=== PATIENT | male | born 1985 | race Caucasian/White ===

== ENCOUNTER 2021-02-26 18:45 | Emergency (ER) | payer BC ==
[2021-02-26] MEDS ORDERED: Lidocaine 1% 10 ML MDV INJECT ONE (20:07)
[2021-02-26] MEDS ORDERED: Diphtheria,Pertussis(Acell),Tetanus Vaccine 0.5 ML Syringe IM ONE (20:23)
--- NOTE | 2021-02-26 20:30 | EDM.PDOC ---
ED HPI GENERAL MEDICAL PROBLEM - General Chief Complaint: Laceration Stated Complaint: CUT ON LEFT THUMB Time Seen by Provider: 02/26/21 20:09 Source of Information: Reports: Patient, RN Notes Reviewed - History of Present Illness INITIAL COMMENTS - FREE TEXT/NARRATIVE: 35 yr old male fell unto the end of a bolt with resultant lac L hand base of L thumb. Was wearing a glove so had some protection from that. Last tetanus a long time ago. - Related Data Allergies Allergy/AdvReac Type Severity Reaction Status Date / Time No Known Allergies Allergy Verified 02/26/21 19:31 Home Meds: Home Meds cephALEXin [Cephalexin] 500 mg PO TID #14 capsule 02/26/21 [Rx] Past Medical History Gastrointestinal History: Reports: Inflammatory Bowel Disease - Past Surgical History GI Surgical History: Reports: Colonoscopy Social & Family History - Tobacco Use Tobacco Use Status *Q: Never Tobacco User - Caffeine Use Caffeine Use: Reports: Coffee - Recreational Drug Use Recreational Drug Use: No ED ROS GENERAL - Review of Systems Review Of Systems: See Below HEENT: Reports: No Symptoms Respiratory: Reports: No Symptoms Cardiovascular: Reports: No Symptoms GI/Abdominal: Reports: No Symptoms Musculoskeletal: Reports: Other (Lac injury L hand) Neurological: Reports: No Symptoms ED EXAM, SKIN/RASH Exam: See Below General Appearance: Alert, No Apparent Distress Head: Atraumatic Neck: Supple Respiratory/Chest: No Respiratory Distress Extremities: Other (2 cm curved flap lac injury volar base of L thumb, no active bleeding, no other area of injury) Neurological: No Motor/Sensory Deficits (Good thumb ROM and strength) Skin: Warm, Dry, Normal Color ED SKIN PROCEDURES - Laceration/Wound Repair Left Hand Appearance: Other (curved flap configuration) Anesthetic Type: Local Local Anesthesia - Lidocaine (Xylocaine): 1% Plain Exploration/Debridement/Repair: Minimal Debridement Suture Size: 3-0 # of Sutures: 6 Suture Type: Nylon Course - Vital Signs Last Recorded V/S: Last Vital Signs Temp 97.9 F 02/26/21 19:29 Pulse 81 02/26/21 19:29 Resp 16 02/26/21 19:29 BP 136/82 02/26/21 19:29 Pulse Ox 96 02/26/21 19:29 - Orders/Labs/Meds Orders: Active Orders 24 hr Category Date Time Status Vaccines to be Administered [RC] PER UNIT ROUTINE Care 02/26/21 20:23 Active Meds: Medications Discontinued Medications Generic Name Dose Route Start Last Admin Trade Name Krupa PRN Reason Stop Dose Admin Cephalexin 500 mg 02/26/21 20:38 Cephalexin 500 Mg Cap PO 02/26/21 20:39 ONETIME ONE Diphtheria/Tetanus/Acell Pertussis 0.5 ml 02/26/21 20:23 Diphtheria,Pertussis(Acell),Tetanus Vaccine 0.5 Ml Syringe IM 02/26/21 20:24 .ONCE ONE Lidocaine HCl 10 ml 02/26/21 20:07 02/26/21 20:35 Lidocaine 1% 10 Ml Mdv INJECT 02/26/21 20:08 10 ml ONETIME ONE Administration Departure - Departure Time of Disposition: 20:50 Disposition: Home, Self-Care 01 Condition: Fair Clinical Impression: Laceration of hand Qualifiers: Encounter type: initial encounter Foreign body presence: without foreign body Laterality: left Qualified Code(s): S61.412A - Laceration without foreign body of left hand, initial encounter - Discharge Information Prescriptions: cephALEXin [Cephalexin] 500 mg PO TID #14 capsule Referrals: David Cr MD [Primary Care Provider] - Forms: ED Department Discharge Additional Instructions: Laceration care instr. Stitches out in about 11 to 12 days. Call clinic for appt. Cephalexin 500 mg 3 times daily for 5 days or until gone. Prescription has been sent to [facility]. Have rechecked any sign of infection. Sepsis Event Note (ED) - Evaluation Sepsis Screening Result: No Definite Risk - Focused Exam Vital Signs: Vital Signs Temp Pulse Resp BP Pulse Ox 02/26/21 19:29 97.9 F 81 16 136/82 96 - My Orders Last 24 Hours: My Active Orders 02/26/21 20:23 Vaccines to be Administered [RC] PER UNIT ROUTINE - Assessment/Plan Last 24 Hours: My Active Orders 02/26/21 20:23 Vaccines to be Administered [RC] PER UNIT ROUTINE
[2021-02-26] MEDS ORDERED: Cephalexin 500 MG Cap PO ONE (20:38)
== END 2021-02-26 21:10 | disposition home or self-care (01) ==
LOC: JD.ED 18:45
DX: S61.412A Laceration without foreign body of left hand, initial encounter (principal); Z23 Encounter for immunization; W26.8XXA Contact with other sharp object(s), not elsewhere classified, initial encounter
CPT/HCPCS: 12001; 90471; 90715; 99282; A9270; 99283

== ENCOUNTER 2021-12-19 22:20 | Emergency (ER) | payer BC ==
[2021-12-19] MEDS ORDERED: Lidocaine 1% 10 ML MDV INJECT ONE (23:37)
== END 2021-12-20 00:44 | disposition home or self-care (01) ==
LOC: JD.ED 22:20
DX: S51.011A Laceration without foreign body of right elbow, initial encounter (principal); S01.111A Laceration without foreign body of right eyelid and periocular area, initial encounter; W20.8XXA Other cause of strike by thrown, projected or falling object, initial encounter; Y93.64 Activity, baseball
CPT/HCPCS: 12014; 99283-25